=== PATIENT | female | born 1955 | race Caucasian/White ===

== ENCOUNTER 2016-12-31 12:10 | Observation (INO) | payer BC ==
[2016-12-26 11:59] LABS: HEMATOCRIT 37.7 % (36.0-48.0); HEMOGLOBIN 12.2 g/dL (12.0-16.0)
[2016-12-26 12:23] LABS: BUN (BLOOD UREA NITROGEN) 9 MG/DL (6-23); CHLORIDE, SERUM 107 MMOL/L (96-112); CO2 (CARBON DIOXIDE) 27 MMOL/L (24-34); CREATININE 0.56 MG/DL (0.55-1.02); GFR AFRICAN AMERICAN 116 ML/MIN (>=60); GFR NON AFRICAN AMERICAN 100 ML/MIN (>=60); GLUCOSE, SERUM 115 MG/DL (60-99); POTASSIUM, SERUM 4.4 MMOL/L (3.5-5.3); SODIUM, SERUM 141 MMOL/L (135-148)
--- NOTE | ~2016-12-31 | OP ---
Record Of Operation [facility] [address] [place]. [address] NAME: LATANYA ENCINAS : 53 STATUS : DIS Millicent PAT#: [id number] AGE: 61 ADM/REG DATE : 12/31/16 MR#: [id number] REPORT SERV DATE: 01/02/17 DICTATED BY: QUINCY ANDREW DATE: 12/31/16 REPORT STATUS : Draft TRANSCRIBED BY: MODL DATE: 12/31/16 DATE OF PROCEDURE: 12/31/2016 PREOPERATIVE DIAGNOSIS: Inflammatory breast cancer. POSTOPERATIVE DIAGNOSIS: Inflammatory breast cancer. PROCEDURE PERFORMED: Right modified radical mastectomy with axillary node dissection. ANESTHESIA: General. EBL: 200 mL. COMPLICATIONS: None. SPECIMENS: 1. Right breast. 2. Right axillary fat pad. 3. Right chest wall skin. OPERATIVE DETAILS: This is a 61-year-old female, who was found to have clinical inflammatory breast cancer. She had a mass in the right upper outer quadrant that was found to be triple negative with some clinically positive nodes. The patient did receive neoadjuvant chemotherapy with good response and is now being brought in for modified radical mastectomy and axillary dissection. After discussing options, the patient elected to have modified radical mastectomy without any plans for reconstruction at this time. The patient was brought into the operating room and placed on the table in the supine position. General anesthesia was induced and a time-out was done verifying the correct patient, procedure, and surgical site. The patient was then prepped and draped in the usual sterile fashion. Skin incision was made that encompassed the nipple areolar complex and a previous biopsy scar in a large elliptical manner. The flaps were then raised in the avascular plane between the subcutaneous tissue and breast tissue from the clavicle down to the inframammary crease and from the sternum medially to the anterior border of the latissimus dorsi laterally. Hemostasis was achieved in the flaps and then the breast tissue and underlying pectoralis fascia were excised from the pectoralis major muscle progressing from medially to laterally. At the lateral border of the pectoralis muscle, the breast tissue was sewn laterally until the dissection progressed under the muscle. The breast tissue was then fully dissected free and passed off the table as specimen with a stitch marking the medial aspect of the breast. Attention was now paid to the axillary dissection. Axillary fat pad was bluntly dissected until the axillary vein was identified and cleared of overlying fat. First branch off the axillary vein was divided using Harmonic. Thoracodorsal nerve was identified deep and preserved along with the vascular bundle. The long thoracic nerve was also identified along the edge of the latissimus dorsi. Using the nerve stimulator, this was also preserved. The jerson tissue between these nerves was taken and carefully removed using the Harmonic with special care to protect the identified nerves. It should be noted that the patient did appear to have some clinically positive nodes in the axillary fat pad. This area did have Record Of Operation [place] [id number] [facility] [place]. [address] NAME: LATANYA ENCINAS : 53 STATUS : DIS Millicent PAT#: [id number] AGE: 61 ADM/REG DATE : 12/31/16 MR#: [id number] REPORT SERV DATE: 01/02/17 DICTATED BY: QUINCY ANDREW DATE: 12/31/16 REPORT STATUS : Draft TRANSCRIBED BY: MODL DATE: 12/31/16 some matting of the tissues. Axillary nodes were divided from the lateral pedicle and passed off the table as specimen as well. There was noted to be clinically positive nodes superior to the axillary specimen that remained. This was also divided using the Harmonic scalpel and added to the axillary specimen. The axilla was then checked for hemostasis and electrocautery was used to control the bleeding, it was then irrigated with some saline. No further bleeding was noted and drains were placed, one flat JACKELIN in the axilla and one above the pectoralis. These were each brought out through separate stab incisions for the inframammary line and secured with 2-0 nylon. The incision was then closed using simple interrupted 3-0 Vicryl deep and a horizontal running Monocryl suture to close the skin. This was dressed with burn fluff and a binder. The patient tolerated the procedure well and was taken to PACU in stable condition. She will be staying overnight for 23 hour observation and likely be discharged home in the morning as long as she had pain controlled and doing well. DICTATED BY: MD RENEA Kohli/IKE Quincy Andrew M.D. / [id number] / [id number] CC: Kosta Jiménez MD
[~2016-12-31 12:10] MED LIST: ADVAIR INH; ALBUTEROL INHALER; ALLEGRA180 PO; ASAB PO; BEPREVE EYE OPH; BREO ELLIPTA 21 EACH INH; CALCIUM; COZ50 PO; EPIPEN0.3 IM; MULTIPLE VIT PO; NEUR100 PO; PROVHFA INH; SALINE NASAL RINSE NAS; VIT B 12; XOLAIR SC; XOPENEX1.25 MG/3 INH; [UNRECOGNIZED DRUG - OTHER]
[2017-01-01] MEDS ORDERED: T PO (08:14)
== END 2017-01-01 11:55 | disposition home or self-care (01) ==
LOC: SDC 12:10 → 4EA 17:56
PROVIDERS: Surgery
PROC: 07B50ZX Excision of Right Axillary Lymphatic, Open Approach, Diagnostic (ICD-10-PCS; 2016-12-31)
PROC: 0HTT0ZZ Resection of Right Breast, Open Approach (ICD-10-PCS; principal; 2016-12-31 13:15)
DX: C50.411 Malignant neoplasm of upper-outer quadrant of right female breast (principal); I10 Essential (primary) hypertension; J45.909 Unspecified asthma, uncomplicated; K52.9 Noninfective gastroenteritis and colitis, unspecified; Z86.73 Personal history of transient ischemic attack (TIA), and cerebral infarction without residual deficits; Z90.49 Acquired absence of other specified parts of digestive tract; Z80.0 Family history of malignant neoplasm of digestive organs; Z82.3 Family history of stroke; Z88.0 Allergy status to penicillin; Z88.2 Allergy status to sulfonamides; Z88.1 Allergy status to other antibiotic agents; Z88.8 Allergy status to other drugs, medicaments and biological substances; Z79.82 Long term (current) use of aspirin; Z79.899 Other long term (current) drug therapy; Z98.890 Other specified postprocedural states
CPT/HCPCS: 80048; 85014; 85018; 88305; 88307; 88360; 93005; 94640; 96374; 96376; A9270-GY; G0378; J1885; J2250; J2270; J2370; J2405; J3010; J3370